=== PATIENT | female | born 1990 | race African-American/Black ===

== ENCOUNTER 2017-05-07 06:01 | Inpatient (IN) | payer OTHER ==
--- NOTE | 2017-05-07 09:19 | History and Physical Report ---
History of Present Illness Date of examination: 05/07/17 Chief complaint: Having contractions since 4 am History of present illness: 26 y/o AB1, now 38 + weeks in active labor, GBS positive. care at [facility] since 16 weeks. Past History Past Medical History: no pertinent history Past Surgical History: D&C Family/Genetic History: none Social history: no significant social history - Obstetrical History Expected Date of Delivery: 05/20/17 Actual Gestation: 38 Week(s) 1 Day(s) : 2 Para: 0 Induced : 1 Number of Living Children: 0 Medications and Allergies Allergies Allergy/AdvReac Type Severity Reaction Status Date / Time No Known Allergies Allergy Unverified 05/07/17 07:05 Review of Systems All systems: negative - Vital Signs Vital signs: Vital Signs Pulse BP 77 107/74 05/07/17 06:53 05/07/17 06:53 Temp Pulse Resp BP Pulse Ox 141 H 107/74 82 L 05/07/17 07:12 05/07/17 06:53 05/07/17 07:12 - Physical Exam Breasts: Positive: deferred Cardiovascular: Regular rate Abdomen: Positive: soft Genitourinary (Female): Positive: normal external genitalia Vulva: both: normal Vagina: Positive: normal moisture Uterus: Positive: enlarged Adnexa: both: normal Anus/Rectum: Positive: normal perianal skin Deep Tendon Reflex Grade: Normal +2 - Obstetrical FHR: category 1 Uterine Contraction Monitor Mode: External Cervical Dilatation: 4.5 Cervical Effacement Percentage: 80 station: -1 Uterine Contraction Pattern: Regular Uterine Contraction Intensity: Mild Results All other labs normal. Assessment and Plan A:Active labor @ 38+ weeks P: Expect
[2017-05-07] MEDS ORDERED: MINERAL OIL PO PRN (10:00)
[2017-05-07] MEDS ORDERED: LACTATED RINGERS 1,000 ML IV SCH (10:00)
[2017-05-07] MEDS ORDERED: SUBLIMAZE IV PRN (10:00)
[2017-05-07] MEDS ORDERED: XYLOCAINE 2% INFILTRATI ONE (10:00)
[2017-05-07] MEDS ORDERED: PITOCin/NS 20 UNIT/1000ML DRIP 20 UNITS/1,000 ML BAG IV SCH (10:00)
[2017-05-07] MEDS ORDERED: ePHEDrine SULFATE IV PRN ×2 (10:00→13:30)
[2017-05-07] MEDS ORDERED: POLYCILLIN/NS 2 GM/100 ML 2 GM/100 ML BAG IV ONE (10:00)
[2017-05-07] MEDS: PITOCin/NS 30 UNIT/500ML 30 UNITS/500 ML BAG IV SCH ×3 (10:17→11:30)
[2017-05-07] MEDS ORDERED: BRETHINE IVP PRN (10:30)
[2017-05-07] MEDS ORDERED: BRETHINE SUB-Q PRN (10:30)
[2017-05-07 10:48] LABS: Hematocrit 39.2 % (30.3-42.9); Hemoglobin 13.2 gm/dl (10.1-14.3); Mean Corpuscular HGB Conc 34 % (30-34); Mean Corpuscular Hemoglobin 32 pg (28-32); Mean Corpuscular Volume 94 fl (79-97); Platelet Count 279 K/mm3 (140-440); Red Blood Count 4.17 M/mm3 (3.65-5.03); Red Cell Distribution Width 14.5 % (13.2-15.2); White Blood Count 10.2 K/mm3 (4.5-11.0)
--- NOTE | 2017-05-07 11:40 | Event Note ---
Date: 05/07/17 O: VE /-1, arom clear fluid, PIT @ 4 mu A: IUP @ 38 weeks in active labor P: Expect Epidural
--- NOTE | 2017-05-07 13:11 | Anesthesia Consultation ---
Anesthesia Consult and Med Hx Date of service: 05/07/17 - Airway Anesthetic Teeth Evaluation: Good ROM Head & Neck: Adequate Mental/Hyoid Distance: Adequate Mallampati Class: Class II Intubation Access Assessment: Probably Good - Pre-Operative Health Status ASA Pre-Surgery Classification: ASA2 Proposed Anesthetic Plan: Epidural, Spinal - Pulmonary Hx Asthma: No - Cardiovascular System Hx Hypertension: No - Central Nervous System Hx Seizures: No Hx Psychiatric Problems: No - Endocrine Hx Renal Disease: No Hx Hypothyroidism: No Hx Hyperthyroidism: No - Hematic Hx Anemia: No Hx Sickle Cell Disease: No
--- NOTE | 2017-05-07 13:23 | Event Note ---
Date: 05/07/17 O: VE /-1, epidural in, Pit @ 12mu, CAT I tracing A: Active labor at 38 weeks P: Expect
[2017-05-07] MEDS ORDERED: NARCAN 2 MG/2 ML IV PRN (13:30)
[2017-05-07] MEDS ORDERED: fentaNYL-BUPIV 2 MCG/ML-0.125% 200 MCG/100 ML BAG EPIDURAL SCH (14:00)
[2017-05-07] MEDS ORDERED: POLYCILLIN/NS 1 GM/50 ML 1 GM/50 ML BAG IV SCH (14:00)
[2017-05-07] MEDS ORDERED: LANSINOH TP PRN (17:00)
[2017-05-07] MEDS ORDERED: DULCOLAX PR PRN (17:00)
[2017-05-07] MEDS ORDERED: BENADRYL PO PRN (17:00)
[2017-05-07] MEDS ORDERED: PHENERGAN PO PRN (17:00)
[2017-05-07] MEDS ORDERED: NORCO 5/325 PO PRN (17:00)
[2017-05-07] MEDS ORDERED: TUCKS PAD TP PRN (17:00)
[2017-05-07] MEDS ORDERED: TYLENOL PO PRN (17:00)
[2017-05-07] MEDS ORDERED: SODIUM CHLORIDE FLUSH SYRINGE 10 ML IV NR (17:00)
--- NOTE | 2017-05-07 17:14 | Procedure Note ---
OB Delivery Note - Delivery Date of Delivery: 05/07/17 Surgeon: ETHAN JONES Estimated blood loss: 100cc - Vaginal Delivery presentation: vertex Delivery position: OA Intrapartum events: none Delivery induction: none Delivery augmentation: rupture of membranes, pitocin Delivery monitor: external FHT, external uterine Route of delivery: Delivery placenta: spontaneous Delivery cord: nuchal cord Episiotomy: none Delivery laceration: other (bilateral hymenal ring laceration) Delivery repair: vicryl Anesthesia: intravenous, epidural Delivery comments: of a viable female 6# 3oz @ 1634 on 05/07/2017 over intact perineum. Loose nuchal cord x 1. Bilateral hymenal ring laceration repaired with 3.0 Vicryl. 8/9. Placenta delivered 3 VCI. FF @ U-2, lochia small. Mother and baby doing well. - A at 1 minute: 8 at 5 minutes: 9 Infant Gender: Female (6# 3oz)
[2017-05-07] MEDS: MOTRIN PO SCH (22:45)
[2017-05-08] MEDS: MOTRIN PO SCH ×3 (04:55→17:24)
[2017-05-08 05:02] LABS: Hematocrit 34.6 % (30.3-42.9); Hemoglobin 11.5 gm/dl (10.1-14.3)
--- NOTE | 2017-05-08 09:10 | Progress Note ---
Assessment and Plan A: PPD # 1 -stable P: Discharge home today Subjective - Subjective Date of service: 05/08/17 Principal diagnosis: Interval history: 26 y/o AB1, now 38 + weeks in active labor, GBS positive. care at [facility] since 16 weeks. Patient reports: appetite normal [place]: doing well Objective - Vital Signs Latest vital signs: Vital Signs Temp Pulse Pulse Resp BP BP Pulse Ox 05/08/17 05:10 98.0 F 52 L 18 112/63 05/08/17 04:55 18 05/08/17 00:00 98.2 F 58 L 18 114/61 05/07/17 22:45 18 05/07/17 20:05 98.9 F 79 18 104/60 05/07/17 18:40 98.9 F 80 18 110/62 05/07/17 17:57 94 H 106/55 05/07/17 17:52 86 107/67 05/07/17 17:47 93 H 112/71 05/07/17 17:42 97 H 124/69 05/07/17 17:37 82 115/69 05/07/17 17:32 84 114/70 05/07/17 17:27 83 117/73 05/07/17 17:22 75 108/67 05/07/17 17:17 77 110/74 05/07/17 17:12 82 111/65 05/07/17 17:07 82 111/65 05/07/17 17:02 85 107/65 05/07/17 16:57 88 109/55 05/07/17 16:52 99 H 113/59 05/07/17 16:50 93 H 109/59 05/07/17 16:48 88 98/52 05/07/17 16:42 87 99/52 05/07/17 16:37 91 H 113/56 05/07/17 16:32 90 141/63 05/07/17 16:28 81 136/81 05/07/17 16:23 114 H 98/55 05/07/17 16:17 75 110/59 05/07/17 16:13 91 H 135/64 05/07/17 16:12 118 H 97 05/07/17 16:08 81 112/57 05/07/17 16:07 105 H 100 05/07/17 16:04 86 113/59 17 16:03 75 94 17 16:02 94 H 100 17 15:57 104 H 102/63 100 17 15:53 100 H 101/58 17 15:52 80 98 17 15:48 96 H 107/64 17 15:47 99 H 97 17 15:42 123 H 102/62 97 17 15:37 77 104/57 100 17 15:33 92 H 103/60 17 15:32 79 100 05/07/17 15:30 98.6 F 16 05/07/17 15:27 92 H 98/61 100 17 15:23 86 97/60 05/07/17 15:22 86 100 17 15:19 95 H 117/56 92 05/07/17 15:17 69 100 05/07/17 15:12 83 111/64 99 05/07/17 15:10 72 94 05/07/17 15:08 71 104/64 05/07/17 15:07 77 99 05/07/17 15:02 85 100/66 99 17 15:00 73 92 05/07/17 14:57 69 99/58 100 05/07/17 14:55 78 89 05/07/17 14:53 74 100/58 17 14:52 81 99 05/07/17 14:47 85 108/63 100 05/07/17 14:45 71 L 05/07/17 14:43 84 110/63 05/07/17 14:42 84 50 L 05/07/17 14:39 82 92 05/07/17 14:37 85 111/61 86 05/07/17 14:33 88 90 05/07/17 14:32 89 111/63 96 05/07/17 14:28 103 H 109/63 05/07/17 14:27 100 H 100 17 14:23 81 110/70 05/07/17 14:22 76 100 17 14:17 80 108/68 100 17 14:12 80 107/67 100 05/07/17 14:07 64 101/60 100 05/07/17 14:02 76 101/57 100 05/07/17 13:59 66 101/57 05/07/17 13:57 62 99 05/07/17 13:53 65 104/58 05/07/17 13:52 62 99 05/07/17 13:47 85 97/61 97 05/07/17 13:44 63 97/57 05/07/17 13:42 62 98 05/07/17 13:37 71 106/60 97 05/07/17 13:33 66 104/60 05/07/17 13:32 68 98 05/07/17 13:30 98.4 F 18 05/07/17 13:28 65 102/59 05/07/17 13:27 78 97 05/07/17 13:22 68 105/62 97 05/07/17 13:20 82 107/60 05/07/17 13:17 71 103/62 98 05/07/17 13:15 71 110/61 05/07/17 13:14 79 109/64 05/07/17 13:12 65 97 05/07/17 13:11 67 96/54 05/07/17 13:09 69 103/57 05/07/17 13:07 100 H 101/58 97 05/07/17 13:05 77 104/60 05/07/17 13:03 69 104/61 05/07/17 13:02 68 97 05/07/17 13:01 58 L 105/68 05/07/17 12:59 80 102/55 05/07/17 12:57 80 108/62 97 05/07/17 12:55 87 107/64 05/07/17 12:53 105 H 111/75 05/07/17 12:52 90 98 05/07/17 12:51 89 110/70 05/07/17 12:46 88 111/75 05/07/17 12:33 90 117/89 05/07/17 12:16 85 114/73 05/07/17 12:02 80 115/70 05/07/17 12:00 98.0 F 20 05/07/17 11:47 81 108/71 05/07/17 11:35 93 H 121/74 05/07/17 11:18 95 H 119/84 05/07/17 11:02 96 H 108/71 07/19/17 10:47 92 H 108/69 05/07/17 10:32 82 112/74 05/07/17 10:18 87 110/73 05/07/17 10:01 77 111/75 05/07/17 10:00 98.0 F 18 Intake and Output 05/07/17 05/08/17 05/08/17 22:59 06:59 14:59 Intake Total 120 120 Output Total 700 1300 Balance -580 -1180 Intake: Oral 120 120 Output: Urine 700 1300 Uretheral ([place]) 400 Void 300 1300 Other: Total, Intake Amount 120 120 Total, Output Amount 300 300 # Voids Void 1 1 Estimated Blood Loss 100 - Exam Breasts: Present: deferred Cardiovascular: Present: Regular rate Lungs: Present: Clear to auscultation Abdomen: Present: soft Uterus: Present: fundal height below umbilicus Deep Tendon Reflex Grade: Normal +2
--- NOTE | 2017-05-08 09:13 | Discharge Summary ---
Providers - Providers Date of Admission: 05/07/17 09:15 Date of discharge: 05/08/17 Attending physician: TAM PIZANO MD Primary care physician: TAM PIZANO MD Hospitalization Reason for admission: active labor Delivery: Episiotomy: none Laceration: other (hymenal ring) Other procedures: none complications: none Discharge diagnosis: IUP at term delivered [place] baby: female Condition at discharge: Good Disposition: DC-01 TO HOME OR SELFCARE Plan - Provider Discharge Summary Activity: routine, no sex for 6 weeks, no strenuous exercise Diet: routine Instructions: routine Additional instructions: [] Smoking cessation referral if applicable(refer to patient education folder for contact #) [] Refer to [facility] Booklet Call your doctor immediately for: * Fever > 100.5 * Heavy vaginal bleeding ( >1 pad per hour) * Severe persistent headache * Shortness of breath * Reddened, hot, painful area to leg or breast * Drainage or odor from incision. * Keep incision clean and dry at all times and follow doctor's instructions regarding bathing/showering - Follow up plan Follow up: [facility] [Provider Group] - 6 Weeks
--- NOTE | 2017-05-08 10:47 | Progress Note ---
Subjective Date of service: 05/08/17 Principal diagnosis: Interval history: 1st day after normal vaginal delivery Patient is in the bed, comfortable. Pain is well controlled with pain meds. Ambulated well. No residual neurological deficit. No anesthesia complications Objective - Constitutional Vitals: Vital Signs - 12hr 05/08/17 05/08/17 05/08/17 00:00 04:55 05:10 Temperature 98.2 F 98.0 F Pulse Rate [ 58 L 52 L Right Brachial] Respiratory 18 18 18 Rate Blood Pressure 114/61 112/63 [Right Arm] 05/08/17 08:05 Temperature 98.3 F Pulse Rate [ 80 Right Brachial] Respiratory 19 Rate Blood Pressure 94/53 [Right Arm] - Labs CBC & Chem 7: 05/08/17 04:19
[2017-05-09] MEDS: MOTRIN PO SCH ×4 (00:15→17:00)
[2017-05-09 18:22] VITALS: BP 110/60
== END 2017-05-09 18:45 | disposition home or self-care (01) | DRG 775 ==
LOC: TRG 06:01 → LD 09:15 → OB 19:07
PROVIDERS: ADMIT Obstetrics & Gynecology; ATTEND Obstetrics & Gynecology
PROC: 0HQ9XZZ Repair Perineum Skin, External Approach (ICD-10-PCS; 2017-05-06)
PROC: 10E0XZZ Delivery of Products of Conception, External Approach (ICD-10-PCS; principal; 2017-05-07)
PROC: 3E0S3CZ (ICD-10-PCS; 2017-05-07)
PROC: 00HU33Z Insertion of Infusion Device into Spinal Canal, Percutaneous Approach (ICD-10-PCS; 2017-05-07)
DX: O99.824 Streptococcus B carrier state complicating childbirth (principal); O69.81X0 Labor and delivery complicated by cord around neck, without compression, not applicable or unspecified; O70.0 First degree perineal laceration during delivery; Z3A.38 38 weeks gestation of pregnancy; Z37.0 Single live birth
CPT/HCPCS: 36415; 85014; 85018; 85027; 86850; 86900; 86901; 99211; G0463; J0290; J2590; J3010; J7120